=== PATIENT | male | born 1980 | race Caucasian/White ===

== ENCOUNTER 2024-07-04 14:39 | Emergency (ER) | payer OTHER ==
[2024-07-04] MEDS ORDERED: KETOROLAC 30 MG/ML INJ ONE (15:48)
[2024-07-04] MEDS ORDERED: LIDOCAINE HCL JELLY 2% 6 ML SYRINGE TOP ONE (15:48)
[2024-07-04] MEDS ORDERED: DOXYCYCLINE 100 MG CAP PO ONE (15:48)
--- NOTE | 2024-07-04 16:22 | EDPHYS ---
Physician Documentation [facility] Name: Mandeep James Age: 43 yrs Sex: Male : 1980 Arrival Date: 07/04/2024 Time: 14:39 Bed 14 Private MD: ED Physician Parminder De Jesus HPI: 07/04 17:06 This 43 yrs old Male presents to ER via Ambulatory with complaints of Spider bite. rt 17:06 Patient presents to the ED with a "spider bite" to the right temporal region for the rt past 2 days. Patient states that he squeezed pus out of it. Denies other acute complaints at this time, symptoms are mild in severity, no other aggravating alleviating factors.. Historical: - Allergies: 14:46 NKA; ap3 - Home Meds: 14:46 None [Active]; ap3 - PMHx: 14:46 None; ap3 - Immunization history:: Client reports having NOT received the Covid vaccine. Last tetanus immunization: up to date Flu vaccine is not up to date. - Infectious Disease History:: Denies. - Social history:: Smoking status: Patient reports the use of cigarette tobacco products, smokes one-half pack cigarettes per day. - Family history:: not pertinent. ROS: 17:06 Constitutional: Negative for fever, chills, and weight loss, Neuro: Negative for rt headache, weakness, numbness, tingling, and seizure, 17:06 Skin: Positive for abscess, Negative for cellulitis, Exam: 17:06 Constitutional: This is a well developed, well nourished patient who is awake, alert, rt and in no acute distress. Head/Face: Normocephalic, atraumatic. Chest/axilla: Normal chest wall appearance and motion. Nontender with no deformity. No lesions are appreciated. Cardiovascular: Regular rate and rhythm with a normal S1 and S2. No gallops, murmurs, or rubs. Normal PMI, no JVD. No pulse deficits. Respiratory: Lungs have equal breath sounds bilaterally, clear to auscultation and percussion. No rales, rhonchi or wheezes noted. No increased work of breathing, no retractions or nasal flaring. Abdomen/GI: Soft, non-tender, with normal bowel sounds. No distension or tympany. No guarding or rebound. No evidence of tenderness throughout. 17:06 Skin: Small, apparently drained abscess to the right temporal region, no surrounding cellulitis, no fluctuance. Vital Signs: 14:45 BP 128 / 87; Pulse 95; Resp 17; Temp 98.1; Pulse Ox 100% ; Weight 83.91 kg; Height 5 ap3 ft. 11 in. ; Pain 8/10; 16:40 BP 131 / 75; Pulse 87; Resp 16; Temp 98.1; Pulse Ox 100% ; bp 14:45 Body Mass Index 25.80 (83.91 kg, 180.34 cm) ap3 14:45 Pain Scale: Adult ap3 Procedures: 17:06 I \\T\\ D: Incision and drainage was performed for an abscess of the right right adventist rt Anesthetized with Topical lidocaine. Incised with 18-gauge needle. Drained small amount bloody fluid. Dressing: sterile 4x4 gauze, the patient tolerated the procedure well. MDM: 14:52 Medical Screening Exam initiated rt 17:06 Differential diagnosis: Abscess, cellulitis. Data reviewed: vital signs, nurses notes. rt Counseling: I had a detailed discussion with the patient and/or guardian regarding the historical points, exam findings, and any diagnostic results supporting the discharge/admit diagnosis, the need for outpatient follow up, to return to the emergency department if symptoms worsen or persist or if there are any questions or concerns that arise at home. Response to treatment: the patient's symptoms have markedly improved after treatment. 07/04 16:21 Order name: Dressing - Wound; Complete Time: 16:42 rt Administered Medications: 15:30 Drug: Ketorolac IM 30 mg IM once Route: IM; Site: right deltoid; bp 16:22 Follow up: Response: No adverse reaction bp 15:35 Drug: Lidocaine Mucous Membrane Gel 2 % 1 application Mucous Membrane once Route: bp Mucous Membrane; 15:35 Drug: Doxycycline PO 100 mg PO once Route: PO; bp 16:22 Follow up: Response: No adverse reaction bp Disposition Summary: 07/04/24 16:21 Discharge Ordered Notes: Location: Home rt Problem: new rt Symptoms: have improved rt Condition: Stable rt Diagnosis - Cutaneous abscess of scalp rt Followup: rt - With: Private Physician - When: 2 - 3 days - Reason: Discharge Instructions: - Discharge Summary Sheet rt - Skin Abscess rt Forms: - Medication Reconciliation Form rt - Antibiotic Education rt - Prescription Opioid Use rt - Patient Portal Instructions rt - Leadership Thank You Letter rt Prescriptions: - Doxycycline Hyclate 100 mg Oral Tablet - take 1 tablet ORAL route every 12 hours; 20 tablet; Refills: 0, Product rt Selection Permitted Signatures: Luis Monzon, RN RN bp Maryann Caba RN RN ap3 Parminder De Jesus MD MD rt
--- NOTE | 2024-07-04 16:22 | ER ---
Nurse's Notes [facility] Name: Mandeep James Age: 43 yrs Sex: Male : 1980 Arrival Date: 07/04/2024 Time: 14:39 Bed 14 Private MD: Diagnosis: Cutaneous abscess of scalp Presentation: 07/04 14:45 Chief complaint: Patient states: he has had what he believes to be a spider bite on the ap3 right side of his head for approx 2 days. patient states "I tried to get the core out but I can't". Coronavirus screen: At this time, the client does not indicate any symptoms associated with coronavirus-19. Ebola Screen: No symptoms or risks identified at this time. Initial Sepsis Screen: Does the patient meet any 2 criteria? HR > 90 bpm. Does the patient have a suspected source of infection? No. Patient's initial sepsis screen is negative. Risk Assessment: Do you want to hurt yourself or someone else? Patient reports no desire to harm self or others. Onset of symptoms was July 02, 2024. 14:45 Method Of Arrival: Ambulatory ap3 14:45 Acuity: EL 3 ap3 Triage Assessment: 14:47 General: Appears in no apparent distress. Behavior is calm, cooperative, appropriate ap3 for age. Pain: Complains of pain in right yazidi Pain began 2-3 days ago. Neuro: Level of Consciousness is awake, alert, obeys commands, Oriented to person, place, time, situation, Gait is steady, Speech is normal. Cardiovascular: Patient's skin is warm and dry. Respiratory: Airway is patent Respiratory effort is even, unlabored, Respiratory pattern is regular, symmetrical. Derm: Wound noted right yazidi. Historical: - Allergies: 14:46 NKA; ap3 - Home Meds: 14:46 None [Active]; ap3 - PMHx: 14:46 None; ap3 - Immunization history:: Client reports having NOT received the Covid vaccine. Last tetanus immunization: up to date Flu vaccine is not up to date. - Infectious Disease History:: Denies. - Social history:: Smoking status: Patient reports the use of cigarette tobacco products, smokes one-half pack cigarettes per day. - Family history:: not pertinent. Screenin:48 [facility] ED Fall Risk Assessment (Adult) History of falling in the last 3 months, ap3 including since admission No falls in past 3 months (0 pts) Confusion or Disorientation No (0 pts) Intoxicated or Sedated No (0 pts) Impaired Gait No (0 pts) Mobility Assist Device Used No (0 pt) Altered Elimination No (0 pt) Score/Fall Risk Level 0 - 2 = Low Risk Oriented to surroundings, Maintained a safe environment, Educated pt \\T\\ family on fall prevention, incl call for assistance when getting out of bed, Assessed \\T\\ reinforced patient's understanding of fall precautions, Hourly rounding (assess needs \\T\\ fall precautionary measures) done, Used ambulatory aids as needed (educated on \\T\\ assisted with), Used gait belt as appropriate. Abuse screen: Denies threats or abuse. Nutritional screening: No deficits noted. Tuberculosis screening: No symptoms or risk factors identified. Assessment: 14:45 General: Appears in no apparent distress. uncomfortable, Behavior is calm, cooperative, bp appropriate for age. 16:40 Reassessment: Patient states symptoms have improved. bp Vital Signs: 14:45 BP 128 / 87; Pulse 95; Resp 17; Temp 98.1; Pulse Ox 100% ; Weight 83.91 kg; Height 5 ap3 ft. 11 in. ; Pain 8/10; 16:40 BP 131 / 75; Pulse 87; Resp 16; Temp 98.1; Pulse Ox 100% ; bp 14:45 Body Mass Index 25.80 (83.91 kg, 180.34 cm) ap3 14:45 Pain Scale: Adult ap3 ED Course: 14:41 Patient arrived in ED. ra3 14:45 Parminder De Jesus MD is Attending Physician. rt 14:46 Triage completed. ap3 14:48 Arm band placed on right wrist. ap3 15:34 Luis Monzon, SY is Primary Nurse. bp 16:40 Patient has correct armband on for positive identification. bp 16:40 No provider procedures requiring assistance completed. Patient did not have IV access bp during this emergency room visit. Administered Medications: 15:30 Drug: Ketorolac IM 30 mg IM once Route: IM; Site: right deltoid; bp 16:22 Follow up: Response: No adverse reaction bp 15:35 Drug: Lidocaine Mucous Membrane Gel 2 % 1 application Mucous Membrane once Route: bp Mucous Membrane; 15:35 Drug: Doxycycline PO 100 mg PO once Route: PO; bp 16:22 Follow up: Response: No adverse reaction bp Medication: 16:40 VIS not applicable for this client. bp Outcome: 16:21 Discharge ordered by . rt 16:40 Discharged to home ambulatory, bp 16:40 Condition: stable 16:40 Discharge instructions given to patient, Instructed on discharge instructions, follow up and referral plans. medication usage, wound care, Demonstrated understanding of instructions, follow-up care, medications, wound care, Prescriptions given X 1, 16:44 Patient left the ED. bp Signatures: Luis Monzon, RN RN bp Maryann Caba RN RN ap3 Parminder De Jesus MD MD rt Mariel العراقي ra3
[2024-07-04 16:49] VITALS: TEMP 98.1; O2SAT 100
[2024-07-04 16:50] VITALS: BP 131/75
== END 2024-07-04 16:44 | disposition home or self-care (01) ==
LOC: ER 14:39
PROC: 0H90XZZ Drainage of Scalp Skin, External Approach (ICD-10-PCS; principal; 2024-07-04)
DX: L02.811 Cutaneous abscess of head [any part, except face] (principal)
CPT/HCPCS: 96372; 99284